=== PATIENT | male | born 1965 | race Caucasian/White ===

== ENCOUNTER 2024-02-09 10:18 | Emergency (ER) | payer OTHER, SELFPAY ==
[2024-02-09 10:20] VITALS: BP 186/109
--- NOTE | 2024-02-09 11:15 | ED.GENMED ---
History of Present Illness
General
Chief Complaint: Breathing Problem
Source: patient and spouse
Time Seen by Provider: 02/09/24 11:01
History of Present Illness
History of Present Illness:
58-year-old male presenting with past medical history of asthma to the emergency department for evaluation after he has been experiencing a cough over the last 1 to 2 weeks, more productive of a yellow-green sputum the last few days, this morning
felt as if he were having an asthma attack and needed to use his inhaler 3 separate times, now stating feels a little bit better but still with tightness and wheezing. Patient notes that he normally does not need to use his inhaler throughout the
year noting that only when there is significant seasonal change or a cold will he have an asthma exacerbation notes no recent hospitalizations for asthma. Denies any fevers, chills, rigors. No known sick contacts. No recent antibiotics.
Past History
Past History
ED Past Medical History: Asthma
ED Past Surgical History: None
Social History
Tobacco: Non-smoker
Alcohol: None
Drug: None
Personal:
Living: with family
Review of Systems
Review of Systems
All Other Systems: ROS reviewed and negative except as documented in HPI and ROS
Phy Exam
Physical Exam
Physical Exam:
GENERAL: Alert , in no apparent distress, smiling, pleasant, speaking full sentences
HEAD: NCAT
EYE: conjunctiva clear
NECK: Supple
ENT: o/p clr, mmm.
CARDIAC: Regular rate and rhythm
LUNGS: Diffuse wheezing anterior and posterior lung martin, no accessory muscle use, no tachypnea
NEUROLOGICAL: Alert and oriented
SKIN: Warm and dry, skin intact.
MUSCULOSKELETAL: well perfused.
PSYCH: Normal and appropriate interaction.
Scores
Heart Failure Risk
Heart Failure Risk Score: Not Applicable
Heart Score for Chest Pain Patients
STEMI patient?: Not applicable
Withdrawal Assessment of Alcohol
Withdrawal Assessment Completed?: Not applicable
Course
Orders/Labs/Results
Orders:
Orders
02/09/24 10:30
CR Chest - 2 Views Urgent
Comment:
Reason For Exam: cough
02/09/24 11:14
Ipratropium/Albuterol Sulfate [Duoneb] 3 ml INH R NOW ONE
Prednisone [Deltasone] 50 mg PO NOW STA
Vital Signs
Initial and Last Documented VS:
Initial Vital Signs
Temp Pulse Resp BP Pulse Ox
98.1 F 64 16 186/109 96
02/09/24 10:20 02/09/24 10:20 02/09/24 10:20 02/09/24 10:20 02/09/24 10:20
Last Documented Vital Signs
Temp Pulse Resp BP Pulse Ox
98.1 F 68 18 174/98 99
02/09/24 10:20 02/09/24 12:00 02/09/24 12:00 02/09/24 12:07 02/09/24 12:00
MDM/Problems Addressed
Differential Diagnosis Includes:
asthma, bronchitis, pneumonia
MDM/Problems Addressed:
58-year-old male presenting to the emergency department for evaluation of asthma exacerbation likely induced by upper respiratory infection that started around 2 weeks ago. On arrival patient is without any acute respiratory distress but does have
significant wheezing anterior and posterior lung martin. Patient used his inhaler 3 separate times prior to arrival this morning. Will treat with a DuoNeb and p.o. prednisone. Chest x-ray ordered to rule out pneumonia. Reassessment following.
*Pulse Oximetry
Patient hypoxic: no
*Critical Care Note
Total Time (30-74mins, 75-104mins- exclusive of procedures): Not Applicable
Comment
Comment:
11:45 - following neb treatment patients wheezing is almost fully resolved. reports full resolution of symptoms. will monitor with anticipation of sending home.
Patient Management
Social determinants of health affecting care: Strong social support
Escalation/DeEscalation of care consider admission/obs:
12:20 - patient continues to feel well. would like to go home. Prescription for prednisone sent to pharmacy. also sent rx for doxycycline however recommended patient not take this unless still symptomatic mid week. Rx for albuterol inhaler and
nebulizer sent to pharmacy. stable for d/c home. aware of return precautions
ED Attending Note
-
Portions of this chart may have been created with voice recognition software.� Occasional wrong word or��sound alike� substitutions may have occurred due to the inherent limitations of voice recognition software.
Discharge Plan
Departure
Patient Disposition: Home (Routine Discharge)
Date of Disposition: 02/09/24
Time of Disposition: 12:21
Patient with high blood pressure during this ER visit?: Yes
Discharge Problem:
Asthmatic bronchitis
Instructions: Acute Bronchitis, Adult (DC)
Prescriptions:
New
prednisone 20 mg tablet
40 mg PO DAILY 4 Days Qty: 8 0RF
doxycycline hyclate [Vibramycin] 100 mg capsule
100 mg PO BID 7 Days Qty: 14 0RF
albuterol sulfate 2.5 mg /3 mL (0.083 %) solution for nebulization
2.5 mg inhalation QID PRN (Reason: shortness of breath or wheezing) Qty: 180 0RF
albuterol sulfate 90 mcg/actuation HFA aerosol inhaler
2 puff inhalation Q6H PRN (Reason: shortness of breath or wheezing) Qty: 6.7 0RF
Referrals:
Consuelo Ham CRNP [Family Provider] -
Interventions
Interventions:
*Risk Screen - Suicide Last Done: 02/09/24 11:09
*General Assessment Last Done: 02/09/24 11:09
*Neglect/Abuse Screening Last Done: 02/09/24 11:09
ED- Fall Risk Assessment Last Done: 02/09/24 11:09
*ED COVID-19 Vaccine History Last Done: 02/09/24 11:09
*Nursing Disposition Last Done: 02/09/24 12:24
ED- Cardiac Assessment Last Done: 02/09/24 11:09
ED- Pulmonary Assessment Last Done: 02/09/24 11:09
Discharge Date and Time
Discharge Date/Time: 02/09/24 12:30
Print Language: DUTCH
[2024-02-09] MEDS: DUONEB 3 ML INH (11:19)
[2024-02-09] MEDS: DELTASONE 50 MG PO (11:19)
[2024-02-09 12:00] VITALS: BP 158/74
[2024-02-09 12:07] VITALS: BP 174/98
== END 2024-02-09 12:30 | disposition home or self-care (01) ==
LOC: EMR 10:18
PROVIDERS: EMERGENCY PHYSICIAN Emergency Medicine; FAMILY PHYSICIAN Nurse Practitioner Family
DX: J45.909 Unspecified asthma, uncomplicated (principal)
CPT/HCPCS: 99283; 94640; 71046

== ENCOUNTER → 2024-08-26 07:01 | Outpatient (REF) | payer OTHER, SELFPAY | LOC: REG 07:01 | PROVIDERS: ATTENDING PHYSICIAN Physician Assistant | DX: M54.2 Cervicalgia (principal); M25.511 Pain in right shoulder; M25.611 Stiffness of right shoulder, not elsewhere classified | CPT/HCPCS: 72050; 73030 ==

== ENCOUNTER → 2024-09-20 07:42 | Outpatient (REF) | payer OTHER, SELFPAY | LOC: PAVMRI 07:42 | PROVIDERS: ATTENDING PHYSICIAN Physician Assistant; FAMILY PHYSICIAN Physician Assistant | DX: M25.611 Stiffness of right shoulder, not elsewhere classified (principal); M25.511 Pain in right shoulder | CPT/HCPCS: 70030; 73221 ==

== ENCOUNTER 2024-11-30 06:59 | Outpatient (RCR) | payer OTHER, SELFPAY | END 2024-11-30 23:59 | disposition home or self-care (01) | LOC: RPT 06:59 | PROVIDERS: ATTENDING PHYSICIAN Orthopaedic Surgery Hand Surgery; FAMILY PHYSICIAN Physician Assistant | DX: M75.41 Impingement syndrome of right shoulder (principal); Z73.6 Limitation of activities due to disability; M62.81 Muscle weakness (generalized) | CPT/HCPCS: 97010; 97110; 97140; 97162 ==

== ENCOUNTER 2024-12-07 06:46 | Outpatient (RCR) | payer OTHER, SELFPAY | END 2024-12-07 23:59 | disposition home or self-care (01) | LOC: RPT 06:46 | PROVIDERS: ATTENDING PHYSICIAN Orthopaedic Surgery Hand Surgery; FAMILY PHYSICIAN Physician Assistant | DX: M75.41 Impingement syndrome of right shoulder (principal); Z73.6 Limitation of activities due to disability; M62.81 Muscle weakness (generalized) | CPT/HCPCS: 97010; 97110; 97140 ==